=== PATIENT | female | born 1970 | race Caucasian/White ===

== ENCOUNTER 2019-09-01 19:30 | Emergency (ER) | payer OTHER, SELFPAY ==
[2019-09-01 19:43] VITALS: BP 108/75; PULSE 93; RESP 14; TEMP 36.6; O2SAT 96; BMI 24.7
[2019-09-01 19:56] VITALS: BP 117/70; PULSE 78
[2019-09-01 20:07] LABS: Basophils # 0.1 10^3/uL (0.0-0.1); Basophils % 0.8 %; Eosinophils # 0.1 10^3/uL (0.0-0.8); Eosinophils % 1.7 %; Hematocrit 39.2 % (37.0-47.0); Hemoglobin 11.9 g/dL (11.5-15.3); Lymphocytes # 2.1 10^3/uL (0.8-4.8); Lymphocytes % 32.8 %; Mean Corpuscular HGB Conc 30.4 g/dL (30.0-36.0); Mean Corpuscular Hemoglobin 26.3 pg (28.0-34.0); Mean Corpuscular Volume 86.7 fL (81-99); Mean Platelet Volume 10.5 fL (7.4-10.4); Monocytes # 0.6 10^3/uL (0.2-0.9); Monocytes % 9.1 %; Neutrophils # 3.5 10^3/uL (1.8-7.7); Neutrophils % 55.4 %; Nucleated Red Blood Cells % 0 %; Platelet Count 339 10^3/cmm (130-400); Red Blood Count 4.52 10^6/uL (4.1-5.3); Red Cell Distribution Width 15.4 % (12.1-15.1); White Blood Count 6.3 10^3/uL (4.0-10.0)
[2019-09-01 20:13] VITALS: BP 111/80; PULSE 77
[2019-09-01 20:14] VITALS: BP 102/69; PULSE 84
--- NOTE | 2019-09-01 20:15 | ECG_ITS ---
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 Measurements Intervals [place] Rate: 70 P: 55 UT: 185 QRS: 37 QRSD: 88 T: 44 QT: 381 QTc: 411 Interpretive Statements SINUS RHYTHM NONSPECIFIC T-WAVE ABNORMALITY No previous ECG available for comparison Electronically Signed On 09-01-2019 21:14:21 CDT by Belem Kelly M.D. [email or web address] medical groupCogenicsohio state health system.Metrilus/store/OM/[id number]
[2019-09-01 20:32] LABS: Alanine Aminotransferase 16 U/L (0-33); Albumin Level 4.5 g/dL (3.5-5.2); Alkaline Phosphatase 75 IU/L (35-105); Anion Gap 12.5 (5-19); Aspartate Amino Transferase 14 U/L (0-32); Blood Urea Nitrogen 16 mg/dL (6-20); Calcium 10.7 mg/dL (8.5-10.5); Carbon Dioxide 28 mmol/L (22-29); Chloride 101 mmol/L (98-107); Globulin 2.1 g/dL (1.3-4.6); Glomerular Filtration Rate 106.7 mL/min (90-130); Glucose 123 mg/dL (65-115); Lipase 23 U/L (13-60); Osmolality Calculated 284 mOsm/kg (285-295); Potassium 3.5 mmol/L (3.5-5.1); Sodium 138 mmol/L (136-145); Total Bilirubin 0.2 mg/dL (0.15-1.2); Total Protein 6.6 g/dL (6.6-8.7)
[2019-09-01] MEDS: meclizine 25 mg tablet 50 MG PO (20:49)
[2019-09-01 21:09] LABS: Troponin(5th) Baseline 6 ng/L (0-10)
[2019-09-01 21:14] LABS: Add Urine Microscopic? NO
[2019-09-01 21:31] LABS: Bilirubin Urine Neg (NEGATIVE); Blood Urine Neg (Negative); Glucose Urine UA Norm (Normal); Ketones Urine Negative (Negative); Leukocyte Esterase Urine Negative (Negative); Nitrate Urine Negative (Negative); Protein Urine Neg (Negative); Specific Gravity, Urine 1.015 (1.005-1.030); Urine Appearance Clear (CLEAR); Urine Color Yellow (Yellow); Urobilinogen Urine Norm (Negative); pH Urine 5 (5-7)
--- NOTE | 2019-09-01 22:15 | ECG_ITS ---
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 Measurements Intervals [place] Rate: 66 P: 50 OR: 180 QRS: 45 QRSD: 94 T: 55 QT: 393 QTc: 414 Interpretive Statements SINUS RHYTHM NONSPECIFIC T-WAVE ABNORMALITY Compared to ECG 09/01/2019 21:13:51 No significant changes Electronically Signed On 09-02-2019 21:52:05 CDT by Belem Kelly M.D. [email or web address] [email or web address] medical centerKomli Mediapromedica toledo hospitalAcopia Networks/store/OM/[id number]
[2019-09-01] MEDS: sodium chloride 0.9% 1,000 ML 999 ML IV (22:36)
[2019-09-01] MEDS: LORazepam 2 mg/mL INJ 1 mL 1 MG IVP (22:36)
[2019-09-01 22:49] LABS: Troponin 5 2HR Delta 0 ABS# (0-10)
--- NOTE | 2019-09-01 22:59 | W.ED.DIZZY ---
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 She said her symptoms started earlier today while she was at work and she describes it as a room spinning. There was associated nausea but no syncopal episode. She has no prior history of the same. She took some medications to try to help her including promethazine, Zofran, Tums and did not obtain significant improvement. She then went home to try to sleep it off but that did not work so she came back to the emergency department to be seen. MD elicited complaint: vertigo Onset (ago): hour(s) (6) Timing: sudden onset Severity: severe Description: room spinning History of similar symptoms: No Exacerbating factors: movement/ambulation and position/lying down Relieving factors: nothing Associated symptoms: Reports nausea; Denies chills, headache(s) or palpitations Associated neuro symptoms: Deny numbness in extremities Review of Systems General: Reports: 10 or more systems reviewed and unremarkable except in HPI and below Const: Denies: fever(s), chills or body aches Eyes: Denies: change in vision or blurry vision ENMT: Denies: throat pain, enlarged tonsils, odynophagia, hoarseness, mouth pain or swelling of lips/tongue Card: Denies: palpitations, irregular heart rhythm, edema or swelling of feet/ankles Resp: Denies: dyspnea, productive cough or non-productive cough GI: Reports: nausea : Denies: flank pain, difficulty voiding, dysuria, urinary frequency, urinary urgency or urinary hesitancy Musc: Denies: neck pain, back pain or extremity swelling Skin/Breast: Denies: rash, pruritus or erythema Neuro: Denies: headache(s), numbness in extremities or weakness in extremities Endo: Denies: polyuria, polydipsia or tired all the time [facility] ED PFSH: Social History (Reviewed 09/01/19 @ 23:02 by Natasha Hernandez MD, [facility] [place]) Smoking and tobacco status: never smoked Physical Exam Const: COMMON NORMALS: no acute distress, average body habitus, patient oriented x3, no limitations, healthy appearing, alert and well nourished HENMT: COMMON NORMALS: normocephalic, atraumatic and moist oral mucous membranes HEAD & SCALP: normocephalic and atraumatic Neck/C-Spine: COMMON NORMALS: no meningeal signs and no JVD Resp: COMMON NORMALS: normal respiratory effort, No retractions, No use of accessory muscles, clear to auscultation bilaterally and percussion normal AUSCULTATION: clear to auscultation bilaterally PERCUSSION: percussion normal Cardio: COMMON NORMALS: no JVD, regular rate, regular rhythm, S1 normal heart sound present, S2 normal heart sound present, No gallops present (Cardio), No clicks present (Cardio), No murmurs present (Cardio), No rub (Cardio) and Peripheral pulses 2+ throughout RATE: regular rate RHYTHM: regular rhythm HEART SOUNDS: S1 normal heart sound present and S2 normal heart sound present PERIPHERAL PULSES: Peripheral pulses 2+ throughout GI: COMMON NORMALS: Normal to inspection, nondistended, normoactive bowel sounds present, Soft to palpation, non-tender, No hepatosplenomegaly present, no masses and no bruits PALPATION: Yes Soft to palpation and Yes No hepatosplenomegaly present : COMMON NORMALS: Yes no CVA tenderness BLADDER/KIDNEY EXAM: Yes no CVA tenderness Back/Pelvis: COMMON NORMALS: no CVA tenderness Extremity: COMMON NORMALS: normal to inspection, full ROM, capillary refill normal, no calf tenderness and no pedal edema Neuro: COMMON NORMALS: patient oriented x3 SENSORIUM/ORIENTATION: Yes alert MENINGEAL SIGNS: Yes no meningeal signs OTHER: No nystagmus Skin: COMMON NORMALS: no rashes or lesions noted, no wounds, turgor normal, no jaundice, no petechiae and no mottling GENERAL SKIN EXAM: no rashes or lesions noted and turgor normal Course Reevaluation(s): Reevaluation #1: Patient feels better, symptoms have not resolved but there is significant improvement. Discussed options with her-overnight admission versus discharge. The patient wants to be discharged home. I will give her the Tono maneuvers to perform at home as well as a prescription for meclizine. She will follow-up with her primary care provider for further management. She voiced understanding and is in agreement with the plan Time: 23:40 Vital Signs: Vital signs: Vital Signs Temperature 97.9 F 09/01/19 19:43 Pulse Rate 84 09/01/19 20:14 Respiratory Rate 14 09/01/19 19:43 Blood Pressure 102/69 09/01/19 20:14 Pulse Oximetry 96 09/01/19 19:43 MDM - Dizziness MDM Narrative: Medical decision making narrative: Patient with clinical features consistent with BPPV. She obtained some improvement following IV fluids and meclizine and lorazepam. She opted to be discharged home and will perform Tono maneuvers at home. She will follow-up with her primary care provider. Medical Records: Attestation: I reviewed the patient's medical records. Lab Data: Attestation: I reviewed the patient's lab results. Labs: Lab Results 09/01/19 09/01/19 09/01/19 Range/Units 20:02 20:02 20:02 WBC 6.3 (4.0-10.0) 10^3/ uL RBC 4.52 (4.1-5.3) 10^6/u L Hgb 11.9 (11.5-15.3) g/dL Hct 39.2 (37.0-47.0) % MCV 86.7 (81-99) fL MCH 26.3 L (28.0-34.0) pg MCHC 30.4 (30.0-36.0) g/dL RDW 15.4 H (12.1-15.1) % Plt Count 339 (130-400) 10^3/c mm MPV 10.5 H (7.4-10.4) fL Neut % (Auto) 55.4 % Lymph % (Auto) 32.8 % [place] % (Auto) 9.1 % Eos % (Auto) 1.7 % Baso % (Auto) 0.8 % Neut # (Auto) 3.5 (1.8-7.7) 10^3/u L Lymph # (Auto) 2.1 (0.8-4.8) 10^3/u L [place] # (Auto) 0.6 (0.2-0.9) 10^3/u L Eos # (Auto) 0.1 (0.0-0.8) 10^3/u L Baso # (Auto) 0.1 (0.0-0.1) 10^3/u L Nucleated RBC % (a uto) 0 % Nucleated RBCs # 0.0 /100WBC Sodium 138 (136-145) mmol/L Potassium 3.5 (3.5-5.1) mmol/L Chloride 101 (98-107) mmol/L Carbon Dioxide 28 (22-29) mmol/L Anion Gap 12.5 (5-19) BUN 16 (6-20) mg/dL Creatinine 0.6 (0.5-0.9) mg/dL GFR Calculation 106.7 (90-130) mL/min Glucose 123 H (65-115) mg/dL Calculated Osmolal ity 284 L (285-295) mOsm/k g Calcium 10.7 H (8.5-10.5) mg/dL Total Bilirubin 0.2 (0.15-1.2) mg/dL AST 14 (0-32) U/L ALT 16 (0-33) U/L Alkaline Phosphata se 75 (35-105) IU/L Troponin T Baselin e 6 (0-10) ng/L Troponin T 120 Min ron (0-10) ng/L Delta Troponin T (0-10) ABS# Total Protein 6.6 (6.6-8.7) g/dL Albumin 4.5 (3.5-5.2) g/dL Globulin 2.1 (1.3-4.6) g/dL Lipase 23 (13-60) U/L Urine Color (Yellow) Urine Appearance (CLEAR) Urine pH (5-7) Ur Specific Gravit y (1.005-1.030) Urine Protein (Negative) Urine Glucose (UA) (Normal) Urine Ketones (Negative) Urine Blood (Negative) Urine Nitrate (Negative) Urine Bilirubin (NEGATIVE) Urine Urobilinogen (Negative) mg/dL Ur Leukocyte Gayla ase (Negative) 09/01/19 09/01/19 Range/Units 20:40 22:15 WBC (4.0-10.0) 10^3/ uL RBC (4.1-5.3) 10^6/u L Hgb (11.5-15.3) g/dL Hct (37.0-47.0) % MCV (81-99) fL MCH (28.0-34.0) pg MCHC (30.0-36.0) g/dL RDW (12.1-15.1) % Plt Count (130-400) 10^3/c mm MPV (7.4-10.4) fL Neut % (Auto) % Lymph % (Auto) % [place] % (Auto) % Eos % (Auto) % Baso % (Auto) % Neut # (Auto) (1.8-7.7) 10^3/u L Lymph # (Auto) (0.8-4.8) 10^3/u L [place] # (Auto) (0.2-0.9) 10^3/u L Eos # (Auto) (0.0-0.8) 10^3/u L Baso # (Auto) (0.0-0.1) 10^3/u L Nucleated RBC % (a uto) % Nucleated RBCs # /100WBC Sodium (136-145) mmol/L Potassium (3.5-5.1) mmol/L Chloride (98-107) mmol/L Carbon Dioxide (22-29) mmol/L Anion Gap (5-19) BUN (6-20) mg/dL Creatinine (0.5-0.9) mg/dL GFR Calculation (90-130) mL/min Glucose (65-115) mg/dL Calculated Osmolal ity (285-295) mOsm/k g Calcium (8.5-10.5) mg/dL Total Bilirubin (0.15-1.2) mg/dL AST (0-32) U/L ALT (0-33) U/L Alkaline Phosphata se (35-105) IU/L Troponin T Baselin e (0-10) ng/L Troponin T 120 Min ron 6.00 (0-10) ng/L Delta Troponin T 0 (0-10) ABS# Total Protein (6.6-8.7) g/dL Albumin (3.5-5.2) g/dL Globulin (1.3-4.6) g/dL Lipase (13-60) U/L Urine Color Yellow (Yellow) Urine Appearance Clear (CLEAR) Urine pH 5 (5-7) Ur Specific Gravit y 1.015 (1.005-1.030) Urine Protein Neg (Negative) Urine Glucose (UA) Norm (Normal) Urine Ketones Negative (Negative) Urine Blood Neg (Negative) Urine Nitrate Negative (Negative) Urine Bilirubin Neg (NEGATIVE) Urine Urobilinogen Norm (Negative) mg/dL Ur Leukocyte Gayla ase Negative (Negative) EKG Data^: EKG 1: Attestation: I personally reviewed and interpreted this EKG as follows: EKG interpretation date: 09/01/19 EKG interpretation time: 21:13 Prior EKG tracings: not available for review Interpretation: Normal sinus rhythm. Heart rate [address] changes. Normal axis. EKG 2: Attestation: I personally reviewed and interpreted this EKG as follows: EKG interpretation date: 09/01/19 EKG interpretation time: 22:12 Prior EKG tracings: available for review Interpretation: Normal sinus rhythm. Heart rate [address] changes. Normal axis. Unchanged from earlier today. Discharge Plan Discharge Patient Disposition: Home, Self-Care Clinical Impression: Benign paroxysmal positional vertigo Qualifiers: Laterality: unspecified laterality Qualified Code(s): H81.10 - Benign paroxysmal vertigo, unspecified ear Condition: Stable Prescriptions: New Medi-Meclizine 25 mg tablet 25 mg PO TID PRN (Reason: dizziness) Qty: 30 RF: 0 Continued Zofran 4 mg Tablet 4 mg PO PRN RF: 0 Tylenol Extra Strength 500 mg Tablet 1,000 mg PO PRN RF: 0 estradiol 0.025 mg/24 hr patch weekly 0.025 mg transdermal Q7D RF: 0 promethazine 25 mg Tablet 25 mg PO PRN RF: 0 ibuprofen 200 mg Tablet 800 mg PO PRN RF: 0 zolpidem 10 mg tablet 10 mg PO BEDTIME PRN (Reason: Sleep) RF: 0 fluoxetine 60 mg tablet 60 mg PO DAILY RF: 0 Cozaar 1 tab PO DAILY RF: 0 Tums See Rx Instructions .ROUTE .COMPLEX RF: 0 Discharge Orders: Discharge Order (Routine); Ordered 09/01/19 Ordered By: Natasha Hernandez Referrals: Catarino Heath MD [Primary Care Provider] - 1-3 days Patient Instructions: Benign Paroxysmal Positional Vertigo (ED) Activity Restrictions/Additional Instructions: Return for any new or worsening symptoms. Follow-up with your primary care provider within 3 days. Perform the exercises that were printed out and handed to you. Take the meclizine as needed. Coding Level of Care Code ED Ordnance Engineering Technician for Megang Fwd Exam Comprehensive
[2019-09-02 00:06] VITALS: BP 118/70; PULSE 78; RESP 16; O2SAT 97
== END 2019-09-02 00:08 | disposition home or self-care (01) ==
PROVIDERS: Emergency Medicine; Emergency Provider Family Medicine; PCP Family Medicine
DX: H81.10 Benign paroxysmal vertigo, unspecified ear (principal)
CPT/HCPCS: 12345; 36415; 80053; 81003; 83690; 84484; 85025; 93005; 96361; 96374; 99283; 99284; J2060; J7030; J8597

== ENCOUNTER 2020-11-07 12:13 | Emergency (ER) | payer OTHER, SELFPAY ==
--- NOTE | 2020-11-07 12:16 | XR_ITS ---
WS: [id number] Portable AP upright chest, 11/07/2020 Clinical Data: chest pain Comparison: None. Findings: No nodules, masses or effusions are seen. The heart is normal. The pulmonary vascularity is not increased. No pneumonia or pneumothorax is seen. Monitor leads are on the chest wall. XR/XR chest 1V portable [id number] Impression: Negative chest.
--- NOTE | 2020-11-07 12:16 | ECG_ITS ---
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 Measurements Intervals [place] Rate: 74 P: 52 MO: 166 QRS: 26 QRSD: 80 T: 59 QT: 344 QTc: 384 Interpretive Statements SINUS RHYTHM POSSIBLE LEFT ATRIAL ENLARGEMENT [-0.1mV P-WAVE IN V1/V2] NONSPECIFIC T-WAVE ABNORMALITY Compared to ECG 09/01/2019 22:12:52 No significant changes Electronically Signed On 11-07-2020 19:37:59 CDT by Aria Kumari M.D. [id number]
--- NOTE | 2020-11-07 12:34 | W.ED.CHESTPA ---
HPI - Chest Pain General: Chief Complaint: Chest Pain Stated Complaint: Chest Pain Time Seen by Provider: 11/07/20 12:33 History of Present Illness: HPI narrative: Ms Lynch is a 50-year-old lady with significant past medical's of hypertension who presents emergency department due to chest pain. Symptom onset was subacute approximately 9 PM on 11/05. She does not recall any specific activity at the time that provoked it. She describes a deep aching pressure in the center of her chest without significant radiation. This was mildly relieved by being straight upright however ended up resolving spontaneously. Since that time she has had intermittent episodes were less intense however still persisted. They are associated with a an exertional component. Mild associated nausea. She also associates an episode of diaphoresis. She does not have associated shortness of breath. Overall the intensity of symptoms is moderate. The course is as mentioned. She denies similar episodes in the past. She does have a positive family history for her father dying of a heart attack at 64. No other new changes in health, exacerbating, provoking, or alleviating factors identified. Review of Systems General: Reports: 10 or more systems reviewed and unremarkable except in HPI and below Narrative: CONSTITUTIONAL: denies fever, fatigue, weakness EYES - denies pain, denies loss of vision EARS - denies ear issues. NOSE - denies congestion or rhinorrhea. THROAT - denies sore throat or difficulty swallowing. CARDIOVASCULAR -see HPI RESPIRATORY - denies shortness of breath and cough GASTROINTESTINAL - denies abdominal pain, no nausea vomiting, no changes in bowel habits GENITOURINARY - denies dysuria or urinary frequency MUSCULOSKELETAL- denies deformity or pain SKIN - denies rashes or new changed skin lesions NEUROLOGIC - denies focal weakness or sensory changes HEMATOLOGIC/LYMPHATIC - denies easy bruising or lymphadenopathy. [facility] ED PFSH: Social History Smoking and tobacco status: never smoked Physical Exam Narrative: EXAM NARRATIVE: GENERAL/CONSTITUTIONAL - well-appearing. No acute distress. Eyes - PERRL, no conjunctival injection ENMT - Atraumatic external nose and ears. Moist mucous membranes NECK - supple. trachea midline CARDIOVASCULAR - regular rate and rhythm. Peripheral pulses 2+ and equal RESPIRATORY -clear to auscultation bilaterally. No retractions or accessory muscle use. ABDOMEN/GI - Nontender, nondistended. No tenderness to percussion or evidence of peritonitis MSK - Extremities without obvious deformity or tenderness to palpation SKIN - Warm, Dry NEURO - alert and appropriately oriented. strength and sensation intact. Moves all extremities equally. PSYCH - Appropriate mood and affect Course ED course: - Patient was seen and evaluated by me at bedside - Patient placed on cardiac monitors, IV access obtained - Initial evaluation notable for no acute distress, nontoxic appearance. Chest pain not reproducible by palpation on physical exam or deep inspiration maneuvers. - Labs notable for No significant abnormality to explain patient's symptoms. Troponin greater than 6 hours from symptom onset was normal - Imaging notable for no acute abnormality to explain patient's symptoms - Upon serial reexamination after treatment the patient was improved - Based on patient history, evaluation, labs, and imaging as interpreted the most likely cause of the patient's condition is chest pain of unclear etiology. I discussed heart score methodology with the patient and risk stratification. She is moderate risk. I offered admission for inpatient stress test versus outpatient follow-up. The patient elected for outpatient follow-up. - The results of ED evaluation were discussed with the patient including prescriptions and/or symptomatic cares (if applicable) including appropriate and responsible use, followup plan, and return precautions. The patient verbalized understanding and felt safe for discharge. - Patient discharged in satisfactory condition. Vital Signs: Vital signs: Vital Signs Temperature 98.2 F 11/07/20 12:35 Pulse Rate 77 11/07/20 15:20 Respiratory Rate 16 11/07/20 15:20 Blood Pressure 138/92 11/07/20 15:20 Pulse Oximetry 98 11/07/20 15:20 MDM - Chest Pain Medical Records: Attestation: I reviewed the patient's medical records. Lab Data: Attestation: I reviewed the patient's lab results. Labs: Lab Results 11/07/20 11/07/20 11/07/20 Range/Units 12:40 12:40 12:40 WBC 7.9 (4.0-10.0) 10^3/ uL RBC 4.56 (4.1-5.3) 10^6/u L Hgb 12.4 (11.5-15.3) g/dL Hct 40.4 (37.0-47.0) % MCV 88.6 (81-99) fl MCH 27.2 L (28.0-34.0) pg MCHC 30.7 (30.0-36.0) g/dL RDW 15.1 (12.1-15.1) % Plt Count 303 (130-400) 10^3/c mm MPV 11.4 H (7.4-10.4) fL Neut % (Auto) 69.6 % Lymph % (Auto) 21.1 % [place] % (Auto) 7.4 % Eos % (Auto) 1.0 % Baso % (Auto) 0.6 % Neut # (Auto) 5.47 (1.8-7.7) 10^3/u L Lymph # (Auto) 1.7 (0.8-4.8) 10^3/u L [place] # (Auto) 0.6 (0.2-0.9) 10^3/u L Eos # (Auto) 0.1 (0.0-0.8) 10^3/u L Baso # (Auto) 0.1 (0.0-0.1) 10^3/u L Nucleated RBC % (a uto) 0 % Nucleated RBCs # 0.0 /100WBC Sodium 138 (136-145) mmol/L Potassium 4.0 (3.5-5.1) mmol/L Chloride 100 (98-107) mmol/L Carbon Dioxide 26 (22-29) mmol/L Anion Gap 16.0 (5-19) BUN 15 (6-20) mg/dL Creatinine 0.5 (0.5-0.9) mg/dL GFR Calculation 130.6 H (90-130) mL/min Glucose 90 (65-115) mg/dL Calculated Osmolal ity 286 (285-295) mOsm/k g Calcium 9.3 (8.5-10.5) mg/dL Troponin T Baselin e 6 (0-10) ng/L Troponin T 120 Min elem (0-10) ng/L Delta Troponin T (0-10) ABS# Lipase 20 (13-60) U/L 11/07/20 Range/Units 14:49 WBC (4.0-10.0) 10^3/ uL RBC (4.1-5.3) 10^6/u L Hgb (11.5-15.3) g/dL Hct (37.0-47.0) % MCV (81-99) fl MCH (28.0-34.0) pg MCHC (30.0-36.0) g/dL RDW (12.1-15.1) % Plt Count (130-400) 10^3/c mm MPV (7.4-10.4) fL Neut % (Auto) % Lymph % (Auto) % [place] % (Auto) % Eos % (Auto) % Baso % (Auto) % Neut # (Auto) (1.8-7.7) 10^3/u L Lymph # (Auto) (0.8-4.8) 10^3/u L [place] # (Auto) (0.2-0.9) 10^3/u L Eos # (Auto) (0.0-0.8) 10^3/u L Baso # (Auto) (0.0-0.1) 10^3/u L Nucleated RBC % (a uto) % Nucleated RBCs # /100WBC Sodium (136-145) mmol/L Potassium (3.5-5.1) mmol/L Chloride (98-107) mmol/L Carbon Dioxide (22-29) mmol/L Anion Gap (5-19) BUN (6-20) mg/dL Creatinine (0.5-0.9) mg/dL GFR Calculation (90-130) mL/min Glucose (65-115) mg/dL Calculated Osmolal ity (285-295) mOsm/k g Calcium (8.5-10.5) mg/dL Troponin T Baselin e (0-10) ng/L Troponin T 120 Min elem 6.00 (0-10) ng/L Delta Troponin T 0 (0-10) ABS# Lipase (13-60) U/L Imaging Data^: CXR: Attestation: I personally reviewed and interpreted this imaging study as follows: My impression: No lobar consolidation or pneumothorax. EKG Data^: EKG 1: Attestation: I personally reviewed and interpreted this EKG as follows: EKG interpretation date: 11/07/20 EKG interpretation time: 12:35 Prior EKG tracings: available for review Interpretation: Twelve-lead EKG shows a regular sinus rhythm at a rate of 74. HI interval 166, QRS duration 80, QTc 384. Normal axis. Interpretation: Sinus rhythm, nonspecific ST segment abnormalities. EKG 2: Attestation: I personally reviewed and interpreted this EKG as follows: EKG interpretation date: 11/07/20 EKG interpretation time: 14:40 Prior EKG tracings: available for review Interpretation: Twelve-lead EKG shows a regular sinus rhythm at a rate of 72. HI interval 180, QRS duration 80, QTc 439. Normal axis. Interpretation: Sinus rhythm, similar to prior. Discharge Plan Discharge Patient Disposition: Home Clinical Impression: Chest pain Condition: Stable Prescriptions: No Action meloxicam 15 mg tablet 15 mg PO DAILY RF: 0 propranolol 20 mg tablet 20 mg PO BID RF: 0 losartan 100 mg tablet 100 mg PO DAILY RF: 0 venlafaxine 150 mg Tablet Extended Release 24hr 150 mg PO DAILY RF: 0 acetaminophen [Tylenol Extra Strength] 500 mg Tablet 1,000 mg PO PRN RF: 0 estradiol 0.025 mg/24 hr patch weekly 0.025 mg transdermal Q7D RF: 0 ibuprofen 200 mg Tablet 800 mg PO PRN RF: 0 zolpidem 10 mg tablet 10 mg PO BEDTIME PRN (Reason: Sleep) RF: 0 Tums 1 - 2 tab PO PRN PRN (Reason: STOMACH ISSUES) RF: 0 Discharge Orders: Discharge ED (Routine); Ordered 11/07/20 Ordered By: Alberto Lacey Referrals: Catarino Heath MD [Primary Care Provider] - Discharge Diet: Usual diet Discharge Activity: Resume usual activity Patient Instructions: Chest Pain (ED) Activity Restrictions/Additional Instructions: Thank you for visiting the emergency department. You were seen and evaluated for chest discomfort. The exact cause of your symptoms is unclear. Based on HEART score as discussed you were moderate risk. Please follow-up with outpatient stress test and echocardiogram. Please return to the emergency department for worsening of your symptoms or anything else that you are concerned about and feel needs emergency department evaluation. Coding Level of Care Code ED Nougat Candy Maker Helper for Ancelmo Cunningham
[2020-11-07 12:35] VITALS: BP 145/90; PULSE 75; RESP 18; TEMP 36.8; O2SAT 99; BMI 25.8
[2020-11-07 12:59] LABS: Basophils # 0.1 10^3/uL (0.0-0.1); Basophils % 0.6 %; Eosinophils # 0.1 10^3/uL (0.0-0.8); Hematocrit 40.4 % (37.0-47.0); Hemoglobin 12.4 g/dL (11.5-15.3); Lymphocytes # 1.7 10^3/uL (0.8-4.8); Lymphocytes % 21.1 %; Mean Corpuscular HGB Conc 30.7 g/dL (30.0-36.0); Mean Corpuscular Hemoglobin 27.2 pg (28.0-34.0); Mean Corpuscular Volume 88.6 fl (81-99); Mean Platelet Volume 11.4 fL (7.4-10.4); Monocytes # 0.6 10^3/uL (0.2-0.9); Monocytes % 7.4 %; Neutrophils # 5.47 10^3/uL (1.8-7.7); Neutrophils % 69.6 %; Nucleated Red Blood Cells % 0 %; Platelet Count 303 10^3/cmm (130-400); Red Blood Count 4.56 10^6/uL (4.1-5.3); Red Cell Distribution Width 15.1 % (12.1-15.1); White Blood Count 7.9 10^3/uL (4.0-10.0)
[2020-11-07 13:00] VITALS: BP 135/93; PULSE 76; RESP 16; O2SAT 97
[2020-11-07] MEDS: aspirin 81 mg Chew Tablet 324 MG PO (13:02)
[2020-11-07 13:24] LABS: Blood Urea Nitrogen 15 mg/dL (6-20); Calcium 9.3 mg/dL (8.5-10.5); Carbon Dioxide 26 mmol/L (22-29); Chloride 100 mmol/L (98-107); Glomerular Filtration Rate 130.6 mL/min (90-130); Glucose 90 mg/dL (65-115); Lipase 20 U/L (13-60); Osmolality Calculated 286 mOsm/kg (285-295); Sodium 138 mmol/L (136-145)
[2020-11-07 13:25] LABS: Troponin(5th) Baseline 6 ng/L (0-10)
[2020-11-07 13:45] VITALS: BP 139/80; PULSE 69; RESP 18; O2SAT 100
[2020-11-07 14:13] VITALS: BP 131/91; PULSE 71; RESP 18; O2SAT 99
--- NOTE | 2020-11-07 14:16 | ECG_ITS ---
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 Measurements Intervals [place] Rate: 72 P: 51 TN: 180 QRS: 28 QRSD: 80 T: 57 QT: 399 QTc: 439 Interpretive Statements SINUS RHYTHM NONSPECIFIC T-WAVE ABNORMALITY Compared to ECG 11/07/2020 12:31:26 No significant changes Electronically Signed On 11-07-2020 19:44:09 CDT by Aria Kumari M.D. [email or web address] valley health system bluffton hospitalKelkoo/store/OM/[id number]
[2020-11-07] MEDS: lidocaine 2% viscous 15 ML, aluminum-mag hydrox-simethicon 30 ML, sucralfate oral liq 1 GM PO (14:50)
[2020-11-07 15:20] VITALS: BP 138/92; PULSE 77; RESP 16; O2SAT 98
[2020-11-07 15:22] LABS: Troponin 5 2HR Delta 0 ABS# (0-10)
--- NOTE | 2020-11-15 08:49 | DCPLANNER ---
Addendum entered by Gem Kirkpatrick 11/27/20 15:48: Centralized scheduling contacted geriatric case manager stating that patients insurance wanted a peer to peer completed in order to authorize a stress test and an echo. ER physicians do not perform peer to peers. credit and collection manager called and spoke with patient, she is going to follow up with her primary care physician. Original Note: credit and collection manager had message to schedule an outpatient stress test, and echo cardiogram for patient. credit and collection manager faxed signed order to centralized scheduling for stress test and echo, they will call patient with appointment information.
== END 2020-11-07 15:15 | disposition home or self-care (01) ==
PROVIDERS: Emergency Medicine; Emergency Provider Emergency Medicine; PCP Family Medicine
DX: R07.9 Chest pain, unspecified (principal)
CPT/HCPCS: 71045; 80048; 83690; 84484; 85025; 93005; 99284

== ENCOUNTER → 2021-12-17 08:27 | Outpatient (BNVA) | payer OTHER, SELFPAY | PROVIDERS: PCP Family Medicine; Visit Provider Nurse Practitioner Family | DX: R68.89 Other general symptoms and signs (principal) | CPT/HCPCS: 87804 ==

== ENCOUNTER → 2021-12-19 08:30 | Outpatient (BNVA) | payer OTHER, SELFPAY | PROVIDERS: PCP Family Medicine; Visit Provider Nurse Practitioner Family | DX: R30.0 Dysuria (principal); N39.0 Urinary tract infection, site not specified | CPT/HCPCS: 81003; 87086 ==

== ENCOUNTER 2024-07-08 12:41 | Outpatient (CLI) | payer OTHER, SELFPAY ==
--- NOTE | 2024-07-08 12:45 | MM_ITS ---
WS: [id number] BILATERAL 3D TOMOSYNTHESIS DIGITAL SCREENING MAMMOGRAPHY WITH CAD CLINICAL INFORMATION: SCREENING HISTORY: Screening mammogram. No current complaints. COMPARISON: 2017 TECHNIQUE: Bilateral CC and MLO views. FINDINGS: Stable bilateral breast implants Scattered fibroglandular densities bilaterally. No suspicious focal mass, asymmetry, calcifications, or architectural distortion. No evidence of malignancy. MM/MM scr tomosynthesis [id number] IMPRESSION: DENSITY: There are scattered areas of fibroglandular density. BI-RADS: 2 - Benign. FOLLOW UP: 1 Year Follow-up Recommend return to annual screening mammography.
== END 2024-07-08 12:42 | disposition home or self-care (01) ==
PROVIDERS: PCP Internal Medicine; Visit Provider Internal Medicine
DX: Z12.31 Encounter for screening mammogram for malignant neoplasm of breast (principal); R92.323 Mammographic fibroglandular density, bilateral breasts; Z98.82 Breast implant status
CPT/HCPCS: 77063; 77067